=== PATIENT | female | born 1985 | race Caucasian/White ===

== ENCOUNTER 2020-11-16 16:21 | Emergency (ER) | payer OTHER ==
[~2020-11-16] VITALS: Ht 160 cm; Wt 77.1 kg
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
[2020-11-16] MEDS ORDERED: INDERAL LA120 M1 PO (16:45)
[2020-11-16 16:52] LABS: ABSOLUTE BASOPHILS 0.1 thou/uL (0.0-0.2); ABSOLUTE LYMPHOCYTES 1.8 thou/uL (0.8-5.3); ABSOLUTE MONOCYTES 0.4 thou/uL (0.0-1.2); ABSOLUTE NEUTROPHILS 6.9 thou/uL (1.6-8.1); BASOPHILS 0.9 %; EOSINOPHILS 0.1 %; HEMATOCRIT 35.7 % (37.0-47.0); HEMOGLOBIN 11.5 gm/dL (12.0-15.0); LYMPHOCYTES 19.8 %; MCH 23.3 pg (26.0-34.0); MCHC 32.1 g/dL (28.0-37.0); MCV 72.5 fL (80.0-100.0); MONOCYTES 3.9 %; MPV 7.6 fl. (7.2-11.1); NUCLEATED RBCS 0 /100WBC; PLATELET COUNT* 386 thou/uL (150-400); POLYS 75.3 %; RBC 4.92 mil/uL (4.20-5.00); RDW-CV 15.8 % (10.5-14.5); WBC 9.2 thou/uL (4.0-11.0)
[2020-11-16 17:08] LABS: APTT 23.3 Seconds (25.0-31.3); CALCIUM 8.6 mg/dL (8.5-10.1); CREATININE 0.8 mg/dL (0.6-1.3); POTASSIUM 3.7 mmol/L (3.5-5.1); PROTIME 10.5 Seconds (9.20-11.50)
[2020-11-16 17:23] LABS: ALBUMIN 3.6 g/dL (3.4-5.0); CK-MB MASS 0.7 ng/mL (<0.5-3.6); MAGNESIUM 1.8 mg/dL (1.8-2.4); TOTAL BILIRUBIN 0.4 mg/dL (<0.1-1.0); TOTAL PROTEIN 7.5 g/dL (6.4-8.2)
[2020-11-16 18:00] VITALS: BP 138/79
--- NOTE | 2020-11-17 15:07 | EKG ---
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: : 1985 Requested By: Albert Del Angel Order Number: [id number] MD: Diomedes Monaco Measurements Intervals [place] Rate: 119 P: 50 TN: 140 QRS: 44 QRSD: 89 T: 34 QT: 307 QTc: 432 Interpretive Statements Sinus tachycardia RSR' in V1 or V2, right VCD or RVH No previous ECG available for comparison Electronically Signed On 11-17-2020 15:07:27 [facility] by Diomedes Monaco [email or web address] <ELECTRONICALLY SIGNED> By: Diomedes Monaco MD, [facility] 11/17/20 1507 1627 1627 Diomedes Monaco MD, [facility] /EPI
== END 2020-11-16 18:06 | disposition home or self-care (01) ==
LOC: M.ERS 16:21
PROVIDERS: Family Medicine
DX: F41.0 Panic disorder [episodic paroxysmal anxiety] (principal)